=== PATIENT | female | born 1955 | race Caucasian/White ===

== ENCOUNTER 2017-02-13 17:30 | Emergency (ER) | payer OTHER ==
[~2017-02-13] VITALS: Ht 157.5 cm; Wt 62.8 kg
[2017-02-13 17:40] VITALS: BP 123/74; PULSE 94; RESP 16; TEMP 98.6; O2SAT 96
--- NOTE | 2017-02-13 17:46 | PD ---
HPI Chief Complaint: Laceration/Skin Injury Time Seen by Provider: 17:45 Travel History International Travel<30 days: No Contact w/Intl Traveler<30days: No Traveled to known affect area: No History of Present Illness HPI 61-year-old female presents to the emergency department status post puncture wound from a piece of glass from a butter dish at fell and broke prior to arrival. Patient has bandage place. Unsure of last tetanus. She denies numbness, tingling, or loss of function. Pain is minimal. She has no known drug allergies. PFSH Past Medical History ?: Not Social History Alcohol Use: No Tobacco Use: No Substance Use: No Allergies-Medications (Allergen,Severity, Reaction): Coded Allergies: No Known Allergies (Unverified , 02/13/17) Reported Meds & Prescriptions Reported Meds & Active Scripts Active Reported Multi Vitamin Daily (Multiple Vitamin) 1 Tab Tab Unknown Dose Aspirin Low Dose (Aspirin) 81 Mg Tabdr 81 Mg PO DAILY Review of Systems Except as stated in HPI: all other systems reviewed are Neg General / Constitutional: No: Fever Eyes: No: Visual changes HENT: No: Headaches Cardiovascular: No: Chest Pain or Discomfort Respiratory: No: Shortness of Breath Gastrointestinal: No: Abdominal Pain Genitourinary: No: Dysuria Musculoskeletal: No: Pain Skin: No Rash Neurologic: No: Weakness Psychiatric: No: Depression Endocrine: No: Polydipsia Hematologic/Lymphatic: No: Easy Bruising Physical Exam Narrative GENERAL: Patient appears in no acute distress. SKIN: Warm and dry. Normal color. Normal turgor. Patient has 1 cm laceration to the right anterior ankle. Bleeding controlled. HEAD: Atraumatic. Normocephalic. EYES: Pupils equal and round. No scleral icterus. No injection or drainage. ENT: No nasal bleeding or discharge. Mucous membranes pink and moist. Pharynx is clear. Airway is patent. NECK: Trachea midline. Supple nontender. CARDIOVASCULAR: Regular rate and rhythm. RESPIRATORY: No accessory muscle use. Clear to auscultation. Breath sounds equal bilaterally. MUSCULOSKELETAL: Extremities without clubbing, cyanosis, or edema. No obvious deformities. Range of motion intact. Neurovascular exam is normal. NEUROLOGICAL: Awake and alert. No obvious cranial nerve deficits. Motor grossly within normal limits. Five out of 5 muscle strength in the arms and legs. Normal speech. PSYCHIATRIC: Appropriate mood and affect; insight and judgment normal. Data Data Last Documented VS Vital Signs Date Time Temp Pulse Resp B/P (MAP) Pulse Ox O2 Delivery O2 Flow Rate FiO2 02/13/17 17:40 98.6 94 16 123/74 (90) 96 Orders Orders Lidocai-Epi 1%-1:100,000 Inj (Xylocaine- (02/13/17 18:00) Tetanus/Diphtheria Tox Adult (Tetanus/Di (02/13/17 18:00) MDM Medical Decision Making Medical Screen Exam Complete: Yes Emergency Medical Condition: Yes Differential Diagnosis Laceration. Open wound. Need for sutures. Tetanus. Narrative Course Patient is medically stable. Patient is given tetanus 0.5 mg IM. Laceration is repaired. See procedure note. Wound care is discussed. Sutures should remain in place for 7-10 days. Follow up when necessary. Procedures Procedure Narrative LACERATION LOCATION: Right anterior ankle LENGTH: 1 cm NUMBER OF STITCHES/GUS: 3 simple interrupted REPAIR: The area of the laceration was prepped with Betadine and sterilely draped. The laceration was infiltrated with 3 mL 1% lidocaine with epi. The wound was copiously irrigated and explored without evidence of foreign body, tendon injury or neurovascular injury. The wound was closed using 4-0 Prolene. This was a single layer repair. A sterile dressing was applied. The patient was advised to keep the dressing clean and dry. Patient tolerated the procedure well. Diagnosis Primary Impression: Laceration of right ankle without complication Qualified Codes: S91.011A - Laceration without foreign body, right ankle, initial encounter Referrals: Primary Care Physician Patient Instructions: Care For Your Stitches (DC), General Instructions, Tetanus (DC) Additional Instructions: Patient is given tetanus 0.5 mg IM. Laceration is repaired. Wound care is discussed. Sutures should remain in place for 7-10 days. Follow up when necessary. Med/Other Pt SpecificInfo: No Meds Exist/No RX given Disposition: 01 DISCHARGE HOME Condition: Stable Alex Vo Feb 13, 2017 17:46
[2017-02-13] MEDS ORDERED: AZIT500T2 PO (17:52)
[2017-02-13] MEDS ORDERED: VENTAER INH (17:52)
[2017-02-13] MEDS ORDERED: PRED20 PO (17:52)
[2017-02-13] MEDS ORDERED: ASPI81TA25 PO (17:58)
[2017-02-13] MEDS ORDERED: MULT1TAB46 (17:58)
[2017-02-13] MEDS ORDERED: LIDOCAINE 1%/EPINEPHrine 1:100,000 SOLN 20 ML VIAL INFIL ONE (18:00)
[2017-02-13] MEDS ORDERED: TETANUS/DIPHTHERIA TOXOID ADULT 0.5 ML VIAL IM ONE (18:00)
== END 2017-02-13 19:02 | disposition home or self-care (01) ==
LOC: PHEFT 17:30
DX: S91.011A Laceration without foreign body, right ankle, initial encounter (principal); W25.XXXA Contact with sharp glass, initial encounter; Z23 Encounter for immunization
CPT/HCPCS: 12001; 90471; 90714